=== PATIENT | female | born 1990 | race Caucasian/White ===

== ENCOUNTER → 2023-11-07 07:35 | Outpatient (REF) | payer OTHER, SELFPAY | LOC: EMG 07:35 | PROVIDERS: ATTENDING PHYSICIAN Nurse Practitioner Family; FAMILY PHYSICIAN Nurse Practitioner Family | DX: R20.0 Anesthesia of skin (principal) | CPT/HCPCS: 95886; 95908 ==

== ENCOUNTER → 2023-11-07 14:02 | Outpatient (REF) | payer OTHER, SELFPAY | LOC: RAD 14:02 | PROVIDERS: ATTENDING PHYSICIAN Nurse Practitioner Family | DX: R20.0 Anesthesia of skin (principal); M79.604 Pain in right leg | CPT/HCPCS: 72110; 73552 ==

== ENCOUNTER → 2023-11-15 06:25 | Day surgery (SDC) | payer OTHER, SELFPAY | LOC: GI 06:25 | PROVIDERS: ATTENDING PHYSICIAN Internal Medicine Gastroenterology | DX: K57.30 Diverticulosis of large intestine without perforation or abscess without bleeding (principal); K64.8 Other hemorrhoids; K92.1 Melena; R19.4 Change in bowel habit; K29.50 Unspecified chronic gastritis without bleeding; B96.81 Helicobacter pylori [H. pylori] as the cause of diseases classified elsewhere; R63.4 Abnormal weight loss; R10.13 Epigastric pain; R14.0 Abdominal distension (gaseous) | CPT/HCPCS: 45378; 43239; 88305; 88342 ==

== ENCOUNTER 2023-12-13 04:41 | Emergency (ER) | payer OTHER, SELFPAY ==
[2023-12-13 04:44] VITALS: BP 136/79
[2023-12-13] MEDS: NSS 1000 IV ×2 (05:23→08:46)
[2023-12-13 05:24] LABS: % Basophils 1.3 % (0-2); % Eosinophils 2.5 % (0-6); % Immature Granulocytes 0.2 % (0-0.5); % Lymphocytes 35.2 % (20.5-51.1); % Monocytes 7.7 % (1.7-9.3); % Neutrophils 53.1 % (42.2-75.2); Absolute Basophils 0.1 10^3/uL (0-0.2); Absolute Eosinophils 0.1 10^3/uL (0-0.7); Absolute Lymphocytes 1.7 10^3/uL (1.2-3.4); Absolute Monocytes 0.4 10^3/uL (0.1-0.6); Absolute Neutrophils 2.6 10^3/uL (1.4-6.5); Hematocrit 39.2 % (37.0-47.0); Hemoglobin 13.1 g/dL (12.0-16.0); Mean Corp Hgb Conc. 33.4 g/dL (33.0-37.0); Mean Corpuscular Hgb 29.3 pg (27.0-31.0); Mean Corpuscular Volume 87.7 fL (81.0-99.0); Nucleated Red Blood Cells % 0 %; Platelet Count 224 10^3/uL (130-400); Red Blood Cell Count 4.47 10^6/uL (4.20-5.40); Red Cell Dist. Width 11.9 % (11.5-14.5); White Blood Cell Count 4.8 10^3/uL (4.8-10.8)
[2023-12-13 05:37] LABS: HCG, Serum Qualitative Screen Negative
[2023-12-13 05:47] LABS: ALT (SGPT) 12 U/L (0-35); AST (SGOT) 20 U/L (14-36); Albumin 4.3 g/dl (3.5-5.0); Alkaline Phosphatase 43 U/L (38-126); Blood Urea Nitrogen 8 mg/dl (7-17); Calcium 9.4 mg/dl (8.4-10.2); Carbon Dioxide 24 mmol/L (22-30); Chloride 103 mmol/L (98-107); Glucose 89 mg/dl (70-99); Sodium 136 mmol/L (135-145); Total Bilirubin 0.4 mg/dl (0.2-1.3); Total Protein 6.9 g/dl (6.3-8.2); eGFR > 60.00
--- NOTE | 2023-12-13 09:08 | ED.GENMED ---
History of Present Illness
General
Chief Complaint: Abdominal Symptoms
Source: patient and records
Exam Limitations: none
Time Seen by Provider: 12/13/23 06:49
Nursing documentation reviewed up to this point in time: agreed with
Travel History
Have you had any contact with someone who has COVID-19?: No
Do you have any symptoms of coronavirus? Fever > 100 degrees, chills, cough, shortness of breath, sore throat, loss of taste or smell, muscle aches, or headache?: No
History of Present Illness
History of Present Illness:
Patient is a 33-year-old female who presents to the emergency department complaining of liquidy diarrhea for the past 24 hours. Patient has mild cramping. Patient does finish triple antibiotics for H. pylori. She finished 4 days ago. Diarrhea
started yesterday. Patient denies any previous history of similar episodes. Patient has very mild cramping without fever or chills or nausea or vomiting. Patient's last period was 3 weeks ago. Patient denies any travel history or raw seafood.
No one else at home is ill. Patient denies any melena or hematochezia.
Past History
Past History
ED Past Medical History: GERD and Other (Miscarriage); Negative Asthma, HTN, Hypercholesterolemia or NIDDM
ED Past Surgical History: None
Social History
Tobacco: Non-smoker
Alcohol: None
Personal:
Living: with family
Review of Systems
Review of Systems
All Other Systems: ROS reviewed and negative except as documented in HPI and ROS
Constitutional: Reports no symptoms
EENT: Reports no symptoms
Respiratory: Reports no symptoms
Cardiac: Reports no symptoms
ABD/GI: Reports abdominal pain and diarrhea; Denies nausea, vomiting, bloody stools, black stools or anorexia
: Reports no symptoms
Musculoskeletal: Reports no symptoms
Skin: Reports no symptoms
Neurological: Reports no symptoms
Hematologic/Lymphatic: Reports no symptoms
Phy Exam
Physical Exam
Physical Exam:
Physical Exam
General: No apparent distress, alert and appropriate, well nourished, well hydrated
HENT: Normocephalic, supple with no lymphadenopathy, no thyromegaly
Eyes: Clear sclera, conjuctiva without injection
Heart: Regular rhythm and rate. No S3, S4. No murmur.
Lungs: No respiratory distress, no stridor, lung sounds clear and equal bilaterally
Abdomen: Soft, nontender, no organomegaly, no CVA tenderness, BS good
Neuro: Alert and oriented x 3, CN II - XII intact, no motor focality, no cerebellar dysfunction
Skin: no rash
Psychiatric: well kept. interactive and cooperative
Extremities: No edema, cyanosis, tenderness, Good and equal peripheral pulses.
Scores
Heart Failure Risk
Heart Failure Risk Score: Not Applicable
Heart Score for Chest Pain Patients
STEMI patient?: Not applicable
Withdrawal Assessment of Alcohol
Withdrawal Assessment Completed?: Not applicable
Course
Orders/Labs/Results
Orders:
Orders
12/13/23 04:51
Test Result ONCE
12/13/23 05:01
Complete Blood Count/With Diff Urgent
Comprehensive Metabolic Panel Urgent
HCG, Serum Qualitative Screen Urgent
12/13/23 05:02
C difficile Antigen & Toxins Urgent
JOSSY Source: Feces/Stool
Specimen Description:
Date Specimen was Collected: 12/13/23
Time Specimen was Collected: 04:51
Stool Culture Urgent
JOSSY Source: Feces/Stool
Specimen Description:
Date Specimen was Collected: 12/13/23
Time Specimen was Collected: 04:51
Stool For WBC Urgent
JOSSY Source: Feces/Stool
Specimen Description:
Date Specimen was Collected: 12/13/23
Time Specimen was Collected: 04:51
12/13/23 05:20
0.9% Sodium Chloride 1000 ml [Nss] 1,000 ml IV BOLUS
12/13/23 07:02
0.9% Sodium Chloride 1000 ml [Nss] 1,000 ml IV BOLUS
12/13/23 05:01
12/13/23 05:01
Vital Signs
Initial and Last Documented VS:
Initial Vital Signs
Temp Pulse Resp BP Pulse Ox
97.9 F 99 20 136/79 100
12/13/23 04:44 12/13/23 04:44 12/13/23 04:44 12/13/23 04:44 12/13/23 04:44
Last Documented Vital Signs
Temp Pulse Resp BP Pulse Ox
97.9 F 99 20 136/79 100
12/13/23 04:44 12/13/23 04:44 12/13/23 04:44 12/13/23 04:44 12/13/23 04:44
*Pulse Oximetry
Patient hypoxic: no
*EKG
Interpreted by ED Provider?: NA
*Rubber Goods Cutter Finisher Interpretation
Rate: Rubber Goods Cutter Finisher- N/A
*Critical Care Note
Total Time (30-74mins, 75-104mins- exclusive of procedures): Not Applicable
ED Attending Note
-
Portions of this chart may have been created with voice recognition software.� Occasional wrong word or��sound alike� substitutions may have occurred due to the inherent limitations of voice recognition software.
Discharge Plan
Departure
Patient Disposition: Home (Routine Discharge)
Date of Disposition: 12/13/23
Time of Disposition: 09:11
Patient with high blood pressure during this ER visit?: No
Covid-19: Not Applicable
Discharge Problem:
Diarrhea
Instructions: Diarrhea in adolescents and adults, [place] Diet
Prescriptions:
No Action
omeprazole 40 mg Capsule,Delayed Release(Dr/Ec)
40 mg PO BID
Referrals:
NONE,* [Family Provider] -
Interventions
Interventions:
*Risk Screen - Suicide Last Done: 12/13/23 04:45
*General Assessment Last Done: 12/13/23 05:26
*Neglect/Abuse Screening Last Done: 12/13/23 04:45
ED- Fall Risk Assessment Last Done: 12/13/23 05:26
*ED COVID-19 Vaccine History Last Done: 12/13/23 04:45
XD-Duzjva-Txsoovocjw Assessment Last Done: 12/13/23 05:26
Discharge Date and Time
Print Language: AZERI
[2023-12-13 09:43] VITALS: BP 113/69
== END 2023-12-13 09:51 | disposition home or self-care (01) ==
LOC: EMR 04:41
PROVIDERS: Student in an Organized Health Care Education/Training Program; EMERGENCY PHYSICIAN Emergency Medicine
DX: R19.7 Diarrhea, unspecified (principal); R10.9 Unspecified abdominal pain; K21.9 Gastro-esophageal reflux disease without esophagitis
CPT/HCPCS: 99284; 96360; 96361 ×4; 80053; 84703; 85025; 87045; 87046; 87324; 87427; 87449; 89055

== ENCOUNTER → 2024-03-02 09:47 | Outpatient (REF) | payer OTHER, SELFPAY | LOC: PNTC 09:47 | PROVIDERS: ATTENDING PHYSICIAN Obstetrics & Gynecology | DX: Z36.0 Encounter for antenatal screening for chromosomal anomalies (principal); Z36.82 Encounter for antenatal screening for nuchal translucency | CPT/HCPCS: 76801; 76813 ==

== ENCOUNTER 2024-03-17 13:30 | Emergency (ER) | payer OTHER, SELFPAY ==
[2024-03-17] VITALS (12 sets, daily range): BP systolic 92–113; BP diastolic 54–75; BMI 24.6
--- NOTE | 2024-03-17 15:08 | ED.GENMED ---
History of Present Illness
<Manju Anderson PA-C - Last Filed: 03/18/24 11:12>
General
Chief Complaint: Fainting Sensation
Source: patient
Exam Limitations: none
Time Seen by Provider: 03/17/24 14:29
Nursing documentation reviewed up to this point in time: agreed with
History of Present Illness
History of Present Illness:
Patient is a 34-year-old female at approximately 15 weeks gestation presenting to the emergency department for evaluation of headache and associated near syncopal event today. Patient states that she was woken up at 3 AM this morning with an
acute onset, very severe headache. She states that it felt 'like her head was going to explode '. Patient did take some Tylenol which improves symptoms somewhat and she was able to fall back asleep. 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 Patient was able to get down onto the floor and did not fully lose consciousness. She called her
REGENERATOR OPERATOR was told to come to the emergency department for further evaluation.
Patient states at this time she is still experiencing a headache in her bilateral temporal region and lingering blurry vision. She does also feel lightheaded at this time.
Patient denies any chest pain, shortness of breath, back pain, abdominal pain. She denies any vaginal bleeding. Patient denies any numbness/tingling in lower extremities or difficulty walking.
Past History
<Manju Anderson PA-C - Last Filed: 03/18/24 11:12>
Past History
ED Past Medical History: GERD and Other (Miscarriage); Negative Asthma, HTN, Hypercholesterolemia or NIDDM
ED Past Surgical History: None
Social History
Tobacco: Non-smoker
Alcohol: None
Personal:
Living: with family
Review of Systems
<Manju Anderson PA-C - Last Filed: 03/18/24 11:12>
Review of Systems
Allergies reviewed?: Yes
All Other Systems: ROS reviewed and negative except as documented in HPI and ROS
Phy Exam
<Manju Anderson PA-C - Last Filed: 03/18/24 11:12>
Physical Exam
Physical Exam:
Vitals: Patient's vital signs are stable. Afebrile
General: Patient is well appearing, no acute distress
Skin: Warm and dry, no rashes or lesions
Head: Normocephalic, atraumatic
Eyes: Sclera nonicteric. EOMs intact. No nystagmus. Pupils equal round reactive to light bilaterally. Visual bell intact bilaterally. Normal funduscopic exam.
Throat: Protecting airway
Neck: Normal ROM, no cervical spine tenderness, no meningismus. Trachea midline
Cardiac: Regular rate and rhythm, no murmurs.
Pulm: Normal respiratory effort, no wheezes, rales, rhonchi heard on exam.
Abdomen: Abdomen soft. No abdominal tenderness.
Extremities: No evidence of cyanosis or edema. Great distal pulses. Negative Homans' sign bilaterally
Neuro: AAOx3. CN II-XII intact. No focal neurologic deficits. Strength 5 out of 5 in upper and lower extremities. Sensation fully intact. Normal finger-nose. Steady gait.
Psychiatric: Normal affect.
Course
<Manju Anderson PA-C - Last Filed: 03/18/24 11:12>
Orders/Labs/Results
Orders:
Orders
03/17/24 13:35
ECG [Electrocardiogram (*1)] Urgent
Reason for Study: Fatigue / Weakness
EKG- Treatment ONCE
03/17/24 14:54
0.9% Sodium Chloride 1000 ml [Nss] 1,000 ml IV BOLUS
Acetaminophen 1000MG/100Ml [Ofirmev] 1,000 mg in 100 ml IV ONCE
Acetaminophen IV Indication:: Targeted Temp Management
03/17/24 15:25
Complete Blood Count/With Diff Urgent
Comprehensive Metabolic Panel Urgent
03/17/24 16:24
Urinalysis Reflex To Culture Urgent
Date Specimen was Collected: 03/17/24
Time Specimen was Collected: 16:22
Urine Microscopic Reflex Cult Urgent
03/17/24 17:10
[place] Urgent
Reason For Exam: MRV r/o venous sinus thrombosis
Recent pill cam endoscopy?: No
03/17/24 18:50
0.9% Sodium Chloride 500 ml [Nss] 500 ml IV BOLUS
Abnormal Lab Results
03/17/24 03/17/24
15:25 16:24
RBC 3.93 L 10^6/uL
(4.20-5.40)
Hgb 11.6 L g/dL
(12.0-16.0)
Hct 32.9 L %
(37.0-47.0)
Neutrophils % 76.8 H %
(42.2-75.2)
Lymphocytes % 17.4 L %
(20.5-51.1)
Carbon Dioxide 21 L mmol/L
(22-30)
Leukocyte Esterase Rfl Trace A
(Negative)
Urine Bacteria (Reflex) Few A
(Negative)
03/17/24 15:25
03/17/24 15:25
Vital Signs
Initial and Last Documented VS:
Initial Vital Signs
Temp Pulse Resp BP Pulse Ox
99.7 F 94 18 113/67 97
03/17/24 13:32 03/17/24 13:32 03/17/24 13:32 03/17/24 13:32 03/17/24 13:32
Last Documented Vital Signs
Temp Pulse Resp BP Pulse Ox
99.7 F 92 18 98/65 99
03/17/24 13:32 03/17/24 22:43 03/17/24 22:43 03/17/24 22:43 03/17/24 22:43
donovan;Paulnio Dowell DO - Last Filed: 03/17/24 22:40>
Orders/Labs/Results
Orders:
Orders
03/17/24 13:35
ECG [Electrocardiogram (*1)] Urgent
Reason for Study: Fatigue / Weakness
EKG- Treatment ONCE
03/17/24 14:54
0.9% Sodium Chloride 1000 ml [Nss] 1,000 ml IV BOLUS
Acetaminophen 1000MG/100Ml [Ofirmev] 1,000 mg in 100 ml IV ONCE
Acetaminophen IV Indication:: Targeted Temp Management
03/17/24 15:25
Complete Blood Count/With Diff Urgent
Comprehensive Metabolic Panel Urgent
03/17/24 16:24
Urinalysis Reflex To Culture Urgent
Date Specimen was Collected: 03/17/24
Time Specimen was Collected: 16:22
Urine Microscopic Reflex Cult Urgent
03/17/24 17:10
[place] Urgent
Reason For Exam: MRV r/o venous sinus thrombosis
Recent pill cam endoscopy?: No
03/17/24 18:50
0.9% Sodium Chloride 500 ml [Nss] 500 ml IV BOLUS
Abnormal Lab Results
03/17/24 03/17/24
15:25 16:24
RBC 3.93 L 10^6/uL
(4.20-5.40)
Hgb 11.6 L g/dL
(12.0-16.0)
Hct 32.9 L %
(37.0-47.0)
Neutrophils % 76.8 H %
(42.2-75.2)
Lymphocytes % 17.4 L %
(20.5-51.1)
Carbon Dioxide 21 L mmol/L
(22-30)
Leukocyte Esterase Rfl Trace A
(Negative)
Urine Bacteria (Reflex) Few A
(Negative)
03/17/24 15:25
03/17/24 15:25
Vital Signs
Initial and Last Documented VS:
Initial Vital Signs
Temp Pulse Resp BP Pulse Ox
99.7 F 94 18 113/67 97
03/17/24 13:32 03/17/24 13:32 03/17/24 13:32 03/17/24 13:32 03/17/24 13:32
Last Documented Vital Signs
Temp Pulse Resp BP Pulse Ox
99.7 F 92 18 98/65 99
03/17/24 13:32 03/17/24 22:43 03/17/24 22:43 03/17/24 22:43 03/17/24 22:43
<Manju Anderson PA-C - Last Filed: 03/18/24 11:12>
MDM/Problems Addressed
Differential Diagnosis Includes:
Not limited to: Vasovagal syncope, dehydration, arrhythmia, viral illness, migraine, tension headache, venous sinus fi
MDM/Problems Addressed:
34-year-old female approximately 15 weeks gestation presenting for evaluation of acute onset severe headache and near syncopal event today. Patient reports acute onset severe headache around 3 AM this morning which did improve mildly following
Tylenol although has persisted. She also describes a near syncopal event while at work with preceding nausea, lightheadedness, blurry vision. Spoke to REGENERATOR OPERATOR who recommended ER evaluation. Patient's vital signs are stable on arrival to emergency
department. Physical exam as above. She is well-appearing, in no apparent distress. There are no focal neurologic deficits. Normal finger-nose. Sensation fully intact. Visual bell intact. Heart regular rate rhythm. Lungs can bilaterally.
No edema or tenderness of lower legs. Great distal pulses. Will check basic labs, urinalysis. Will give IV fluids, IV Tylenol and reassess.
Labs reviewed. No clinically significant abnormalities. Urine shows no evidence of infection or proteinuria. Blood pressure has been somewhat soft but stable given she is in second trimester . Will give another 500 cc IV fluids.
Suspect near syncopal event was likely due to and vasovagal.
Patient does report that she has had no improvement in headache since arrival to emergency department. Did speak with radiology department. Given persistent headache not responding to Tylenol and fluids�will check MR venogram to rule out a venous
sinus thrombosis. Case signed out to attending physician pending MRA results.
Chronic conditions affecting care:
N/A
Acute Exacerbation and/or Progression of Chronic Illness:
N/A
<Manju Anderson PA-C - Last Filed: 03/18/24 11:12>
*Radiology
Radiology exam reviewed: radiology read reviewed
*Pulse Oximetry
Patient hypoxic: no
*EKG
Interpreted by ED Provider?: Yes
EKG Intrepretation Date: 03/17/24
Interpretation: normal
Comparison EKG: no comparison EKG present
Heart Rate: 79
Rate: normal
Rhythm: sinus
[place]: normal axis
Interval: normal interval
QRS Pattern: normal QRS
Ischemia: no ischemia
*Hot Dog Vender Interpretation
Rate: normal
Interpretation: normal
Heart Rate: 84
Rhythm: sinus
*Critical Care Note
Total Time (30-74mins, 75-104mins- exclusive of procedures): Not Applicable
ED Attending Note
<Manju Anderson PA-C - Last Filed: 03/18/24 11:12>
-
Portions of this chart may have been created with voice recognition software.� Occasional wrong word or��sound alike� substitutions may have occurred due to the inherent limitations of voice recognition software.
<Paulino Dowell DO - Last Filed: 03/17/24 22:40>
ED Attending Note
Patient seen and examined by attending physician: Yes
I performed the substantive portion of visit, reviewed & personally made and approve the management plan that is documented in note by myself or JEFFY.: Yes
ED Attending Note:
I agree with Manju's note
Patient presents after having near syncopal episode while working. 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 Coworkers brought a chair to her she was able to sit down. It
took a while for her to return to normal but now she feels close to baseline. She called her REGENERATOR OPERATOR who referred her to the emergency room because the patient was also complaining of a headache last night. Patient states she was awakened from
sleep at about 4 AM due to the headache. She took Tylenol which did help. The headache does persist today. She denies any focal weakness numbness or tingling. She does not like her vision has been blurry.
General: Awake, Alert, Oriented X3. No acute distress, patient appears comfortable
Vitals: unremarkable
Head: Atraumatic
Eyes: Pupils equal, EOMI
Throat: Airway intact, no exudates
Neck: Trachea midline
Lungs: Clear and equal b/l
Heart: Regular rate, no murmurs
Abd: Soft, Nontender, No pulsatile mass
Neuro: Cranial nerves intact, muscle strength equal bilaterally, cerebellar exam normal
Skin: Warm, dry, no rash
Extremities: pulses equal b/l, no edema
Patient presents after near syncopal episode. She also has headache. Her neurologic exam is intact. Extraocular muscle movement is intact. Funduscopic exam appears normal to me.
Differential includes vasovagal episode, dehydration, UTI, venous sinus thrombosis
We will treat the patient with IV fluids and IV Tylenol. If she feels better after present management I do not believe I would pursue imaging as venous sinus thrombosis is rare and when it does occur it typically occurs in the third trimester.
If her pain persist after treatment we will pursue imaging. The near syncopal event I think is related to and vasovagal event. Labs are unremarkable. Patient was recently treated with a UTI. She is concerned it may not gone away based
upon an outpatient urinalysis she reviewed the results of online. We will check urine today.
Urine not c/w infection. Pt states she continued to have headache to MRV ordered to excluded thrombosis.
MR normal. Stable for dicharge
Discharge Plan
Departure
Patient Disposition: Home (Routine Discharge)
Date of Disposition: 03/17/24
Time of Disposition: 22:32
Patient with high blood pressure during this ER visit?: No
Condition: Good
Covid-19: Not Applicable
Discharge Problem:
Headache, Vasovagal near syncope
Instructions: Near Fainting (DC), Headache, Adult ED
Prescriptions:
No Action
omeprazole 40 mg Capsule,Delayed Release(Dr/Ec)
40 mg PO BID
Referrals:
UNKNOWN - PT DOES,NOT KNOW [Unknown Provider] -
Activity Restrictions/Additional Instructions:
RETURN TO THE EMERGENCY DEPARTMENT WITH SEVERE HEADACHE/NECK PAIN, PERSISTENT DIZZINESS/LIGHTHEADEDNESS, CHEST PAIN, SHORTNESS OF BREATH, WORSENING IN CURRENT SYMPTOMS, OR ANY OTHER CONCERNS
-Is important stay well-hydrated. You should follow-up with your REGENERATOR OPERATOR for further evaluation/management.
Interventions
Interventions:
*Risk Screen - Suicide Last Done: 03/17/24 13:32
*General Assessment Last Done: 03/17/24 13:32
*Neglect/Abuse Screening Last Done: 03/17/24 13:32
*Nursing Disposition Last Done: 03/17/24 22:44
ED- Cardiac Assessment Last Done: 03/17/24 16:43
ED- Neurological Assessment Last Done: 03/17/24 16:42
Discharge Date and Time
Discharge Date/Time: 03/17/24 22:44
Print Language: MALTESE
[2024-03-17] MEDS: OFIRMEV 100 IV (15:24)
[2024-03-17 15:39] LABS: % Basophils 0.3 % (0-2); % Eosinophils 0.7 % (0-6); % Immature Granulocytes 0.5 % (0-0.5); % Lymphocytes 17.4 % (20.5-51.1); % Monocytes 4.3 % (1.7-9.3); % Neutrophils 76.8 % (42.2-75.2); Absolute Eosinophils 0.1 10^3/uL (0-0.7); Absolute Lymphocytes 1.3 10^3/uL (1.2-3.4); Absolute Monocytes 0.3 10^3/uL (0.1-0.6); Absolute Neutrophils 5.7 10^3/uL (1.4-6.5); Hematocrit 32.9 % (37.0-47.0); Hemoglobin 11.6 g/dL (12.0-16.0); Mean Corp Hgb Conc. 35.3 g/dL (33.0-37.0); Mean Corpuscular Hgb 29.5 pg (27.0-31.0); Mean Corpuscular Volume 83.7 fL (81.0-99.0); Nucleated Red Blood Cells % 0 %; Platelet Count 197 10^3/uL (130-400); Red Blood Cell Count 3.93 10^6/uL (4.20-5.40); Red Cell Dist. Width 12.9 % (11.5-14.5); White Blood Cell Count 7.4 10^3/uL (4.8-10.8)
[2024-03-17 15:56] LABS: ALT (SGPT) 11 U/L (0-35); AST (SGOT) 19 U/L (14-36); Albumin 3.9 g/dl (3.5-5.0); Alkaline Phosphatase 48 U/L (38-126); Blood Urea Nitrogen 12 mg/dl (7-17); Calcium 9.3 mg/dl (8.4-10.2); Carbon Dioxide 21 mmol/L (22-30); Chloride 106 mmol/L (98-107); Estimated Creatinine Clearance 111 ml/min; Glucose 79 mg/dl (70-99); Sodium 135 mmol/L (135-145); Total Bilirubin 0.3 mg/dl (0.2-1.3); Total Protein 6.6 g/dl (6.3-8.2); eGFR > 60.00
[2024-03-17] MEDS: NSS 1000 IV (16:00)
[2024-03-17 16:35] LABS: Urine Albumin Negative (Neg - Trace); Urine Bilirubin Negative (Negative); Urine Character Clear (Clear); Urine Color Straw; Urine Glucose Negative (Negative); Urine Ketone Negative (Negative); Urine Leukocyte Trace (Negative); Urine Nitrite Negative (Negative); Urine Occult Blood Negative (Negative); Urine Urobilinogen Negative (Neg - 1+)
[2024-03-17 16:46] LABS: Urine Bacteria Few (Negative); Urine Red Blood Cell 0-2 /HPF (0-2)
[2024-03-17] MEDS: NSS 500 IV (19:07)
== END 2024-03-17 22:44 | disposition home or self-care (01) ==
LOC: EMR 13:30
PROVIDERS: Physician Assistant; EMERGENCY PHYSICIAN Emergency Medicine; FAMILY PHYSICIAN Internal Medicine Geriatric Medicine
DX: O26.892 Other specified pregnancy related conditions, second trimester (principal); R55 Syncope and collapse; R51.9 Headache, unspecified; Z3A.15 15 weeks gestation of pregnancy
CPT/HCPCS: 99285; 96374; 96361 ×2; 70544; 80053; 81003; 81015; 85025; 93005

== ENCOUNTER → 2024-06-15 10:43 | Outpatient (REF) | payer OTHER, SELFPAY | LOC: PNTC 10:43 | PROVIDERS: ATTENDING PHYSICIAN Obstetrics & Gynecology | DX: O36.0190 Maternal care for anti-D [Rh] antibodies, unspecified trimester, not applicable or unspecified (principal) | CPT/HCPCS: 36415; 86850; 86900; 86901; J2790 ==

== ENCOUNTER 2024-09-01 19:03 | Inpatient (IN) | payer OTHER, SELFPAY ==
[2024-09-01 19:06] VITALS: BMI 27.5
[2024-09-01 19:25] VITALS: BP 100/69
[2024-09-01 19:39] LABS: % Basophils 0.3 % (0-2); % Eosinophils 0.9 % (0-6); % Immature Granulocytes 1.9 % (0-0.5); % Lymphocytes 24.7 % (20.5-51.1); % Monocytes 5.3 % (1.7-9.3); % Neutrophils 66.9 % (42.2-75.2); Absolute Eosinophils 0.1 10^3/uL (0-0.7); Absolute Immature Granulocytes 0.1 10^3/uL (0-0.05); Absolute Lymphocytes 1.7 10^3/uL (1.2-3.4); Absolute Monocytes 0.4 10^3/uL (0.1-0.6); Absolute Neutrophils 4.7 10^3/uL (1.4-6.5); Hematocrit 34.8 % (37.0-47.0); Hemoglobin 12.1 g/dL (12.0-16.0); Mean Corp Hgb Conc. 34.8 g/dL (33.0-37.0); Mean Corpuscular Hgb 30.3 pg (27.0-31.0); Mean Corpuscular Volume 87.2 fL (81.0-99.0); Mean Platelet Volume 9.7 fL (7.4-10.4); Nucleated Red Blood Cells % 0 %; Platelet Count 142 10^3/uL (130-400); Red Blood Cell Count 3.99 10^6/uL (4.20-5.40); Red Cell Dist. Width 13.5 % (11.5-14.5)
[2024-09-01] MEDS: CYTOTEC 25 MICROGRAM VAG (20:32)
[2024-09-01] MEDS: LR 1000 IV (21:06)
[2024-09-01] MEDS: PENICILLIN 110 UNITS IV (21:07)
[2024-09-02] MEDS: PENICILLIN 55 UNITS IV ×4 (01:30→13:31)
[2024-09-02] MEDS: LR 1000 IV (01:31)
[2024-09-02] MEDS: FENTANYL/BUPIVACAINE 100 EPIDURAL ×2 (02:00→09:55)
[2024-09-02] MEDS: SUBLIMAZE 100 MCG EPIDURAL (02:00)
[2024-09-02] MEDS: PITOCIN 30 UNITS/NSS 500 ML IV (03:12)
[2024-09-03] MEDS: MOTRIN 600 MG PO ×3 (03:37→18:22)
[2024-09-03] MEDS: TYLENOL 650 MG PO ×4 (03:37→18:22)
[2024-09-03 05:51] LABS: Hematocrit 34.2 % (37.0-47.0); Hemoglobin 11.6 g/dL (12.0-16.0)
[2024-09-03] MEDS: SENOKOT-S 1 TABLET PO (07:58)
[2024-09-03] MEDS: PRENATAL PLUS 1 TABLET PO (07:58)
[2024-09-04] MEDS: MOTRIN 600 MG PO (00:32)
[2024-09-04] MEDS: TYLENOL 650 MG PO (00:32)
[2024-09-04] MEDS: PRENATAL PLUS 1 TABLET PO (10:20)
[2024-09-04 16:37] LABS: Syphilis/T. pallidum Ab Reflex Negative (Negative)
== END 2024-09-04 13:00 | disposition home or self-care (01) | DRG 807 ==
LOC: LDRP 19:03
PROVIDERS: Obstetrics & Gynecology; Student in an Organized Health Care Education/Training Program; ADMITTING PHYSICIAN Obstetrics & Gynecology
PROC: 3E033VJ Introduction of Other Hormone into Peripheral Vein, Percutaneous Approach (ICD-10-PCS; 2024-09-02)
PROC: 3E0P7VZ Introduction of Hormone into Female Reproductive, Via Natural or Artificial Opening (ICD-10-PCS; 2024-09-02)
PROC: 10E0XZZ Delivery of Products of Conception, External Approach (ICD-10-PCS; 2024-09-02)
DX: O99.824 Streptococcus B carrier state complicating childbirth (principal); Z37.0 Single live birth; Z3A.39 39 weeks gestation of pregnancy; O26.893 Other specified pregnancy related conditions, third trimester; Z67.41 Type O blood, Rh negative
CPT/HCPCS: 85014; 85018; 85025; 86780; 86850; 86870; 86900; 86901

== ENCOUNTER → 2025-03-15 10:22 | Outpatient (REF) | payer OTHER, SELFPAY | LOC: HWRAD 10:22 | PROVIDERS: ATTENDING PHYSICIAN Physician Assistant | DX: J34.89 Other specified disorders of nose and nasal sinuses (principal) | CPT/HCPCS: 70486 ==